=== PATIENT | male | born 1975 | race Caucasian/White ===

== ENCOUNTER 2021-09-24 06:42 | Day surgery (SDC) | payer BC, OTHER ==
[~2021-09-24 06:42] MED LIST: Lactated Ringers 1,000 ML IV SCH; cefOXitin 2 GM in Premix Bag 1 BAG IV ONE
[2021-09-24] MEDS ORDERED: Dexmedetomidine 200 MCG/2 ML SDV ONE (07:13)
[2021-09-24] MEDS ORDERED: Water For Injection, Sterile 20 ML ONE (07:13)
[2021-09-24] MEDS ORDERED: Propofol 200 MG/20 ML SDV ONE (07:13)
[2021-09-24] MEDS ORDERED: Metoclopramide 10 MG/2 ML SDV IVPUSH PRN (07:14)
[2021-09-24] MEDS ORDERED: fentaNYL 100 MCG/2 ML SDV IVPUSH PRN (07:14)
[2021-09-24] MEDS ORDERED: Ondansetron 4 MG/2 ML SDV IVPUSH PRN (07:14)
[2021-09-24] MEDS ORDERED: HYDROmorphone 1 MG/ML Syringe IVPUSH PRN (07:14)
[2021-09-24] MEDS ORDERED: Morphine 2 MG/ML SYRINGE IVPUSH PRN (07:14)
[2021-09-24] MEDS ORDERED: Albuterol 0.083% 2.5 MG/3 ML Neb Soln NEB PRN (07:14)
[2021-09-24] MEDS ORDERED: Naloxone 0.4 MG/ML SDV IVPUSH PRN (07:14)
--- NOTE | 2021-09-24 07:14 | PCM.PREANE ---
Preanesthetic Assessment - Anesthesia/Transfusion/Family Hx Anesthesia History: No Prior Anesthesia Transfusion History: No Prior Transfusion(s) - Review of Systems General: No Symptoms Pulmonary: No Symptoms Cardiovascular: No Symptoms Gastrointestinal: No Symptoms Neurological: No Symptoms Other: Reports: None - Physical Assessment NPO Status Date: 09/24/21 NPO Status Time: 00:00 Vital Signs: Last Vital Signs Temp 97.5 F 09/24/21 06:48 Pulse 76 09/24/21 06:48 Resp 16 09/24/21 06:48 BP 137/77 09/24/21 06:48 Pulse Ox 97 09/24/21 06:48 Height: 5 ft 8 in Weight: 175 lb ASA Class: 2 Mental Status: Alert & Oriented x3 Airway Class: Mallampati = 2 Dentition: Reports: Dentures Thyro-Mental Finger Breadths: 3 Mouth Opening Finger Breadths: 3 ROM/Head Extension: Full Lungs: Clear to Auscultation, Normal Respiratory Effort Cardiovascular: Regular Rate, Regular Rhythm - Allergies Allergies/Adverse Reactions: Allergies Allergy/AdvReac Type Severity Reaction Status Date / Time latex Allergy Rash Verified 09/18/21 10:09 - Acknowledgements Anesthesia Type Planned: General Anesthesia Pt an Appropriate Candidate for the Planned Anesthesia: Yes Alternatives and Risks of Anesthesia Discussed w Pt/Guardian: Yes Pt/Guardian Understands and Agrees with Anesthesia Plan: Yes PreAnesthesia Questionnaire - Past Health History Medical/Surgical History: Denies Medical/Surgical History HEENT History: Reports: Other (See Below) Other HEENT History: wears glasses, top and bottom dentures Cardiovascular History: Reports: None Respiratory History: Reports: None Gastrointestinal History: Reports: None Genitourinary History: Reports: None Musculoskeletal History: Reports: None Neurological History: Reports: None Psychiatric History: Reports: None Endocrine/Metabolic History: Reports: Other (See Below) Other Endocrine/Metabolic History: prediabetic Hematologic History: Reports: None Immunologic History: Reports: None Oncologic (Cancer) History: Reports: None Dermatologic History: Reports: None - Past Surgical History Head Surgeries/Procedures: Reports: None HEENT Surgical History: Reports: None Cardiovascular Surgical History: Reports: None Respiratory Surgical History: Reports: None GI Surgical History: Reports: None Male Surgical History: Reports: None Endocrine Surgical History: Reports: None Neurological Surgical History: Reports: None Musculoskeletal Surgical History: Reports: None Oncologic Surgical History: Reports: None Dermatological Surgical History: Reports: None - SUBSTANCE USE Tobacco Use Status *Q: Former Tobacco User Tobacco Use Within Last Twelve Months: No - HOME MEDS Home Medications: Home Meds . [No Known Home Meds] 09/18/21 [History] - CURRENT (IN HOUSE) MEDS Current Meds: Current Medications Lactated Ringer's (Ringers, Lactated) 1,000 mls @ 125 mls/hr IV ASDIRECTED [facility] Last Admin: 09/24/21 07:12 Dose: 125 mls/hr Documented by: Discontinued Medications Cefoxitin Sodium 2 gm/ Premix 50 mls @ 100 mls/hr IV ONETIME ONE Stop: 09/24/21 05:29
[2021-09-24] MEDS ORDERED: Midazolam 1 MG/ML 2 ML SDV ONE (07:21)
[2021-09-24] MEDS ORDERED: Lidocaine 1% with EPINEPHrine 1:100,000 20 ML MDV ONE (07:23)
[2021-09-24] MEDS ORDERED: cefOXitin 1 GM Vial ONE (07:41)
[2021-09-24] MEDS ORDERED: Dexamethasone 4 MG/ML 5 ML MDV ONE (07:52)
[2021-09-24] MEDS ORDERED: Ketorolac 30 MG/ML SDV ONE (07:52)
[2021-09-24] MEDS ORDERED: Ondansetron 4 MG/2 ML SDV ONE (07:52)
--- NOTE | 2021-09-24 08:10 | PCM.OPNOTE ---
- General Post-Op/Procedure Note Date of Surgery/Procedure: 09/24/21 Operative Procedure(s): chest wall mass excisional bx Findings: 4X 2 mass with generous markgin of 0.5 cm; [id number] Pre Op Diagnosis: chest wall mass Post-Op Diagnosis: Same Anesthesia Technique: General LMA Primary Surgeon: Denilson Woodruff Pathology: sent Complications: None Condition: Good
--- NOTE | 2021-09-24 08:14 | PCM48HPAN ---
Post Anesthesia Note - EVALUATION WITHIN 48HRS OF ANESTHETIC Vital Signs in Normal Range: Yes Patient Participated in Evaluation: Yes Respiratory Function Stable: Yes Airway Patent: Yes Cardiovascular Function Stable: Yes Hydration Status Stable: Yes Pain Control Satisfactory: Yes Nausea and Vomiting Control Satisfactory: Yes Mental Status Recovered: Yes Vital Signs: Last Vital Signs Temp 97.5 F 09/24/21 06:48 Pulse 76 09/24/21 06:48 Resp 16 09/24/21 06:48 BP 137/77 09/24/21 06:48 Pulse Ox 97 09/24/21 06:48
--- NOTE | 2021-09-24 08:14 | PCM.POSTAN ---
POST ANESTHESIA ASSESSMENT - MENTAL STATUS Mental Status: Alert, Oriented - VITAL SIGNS Vital Signs: Last Vital Signs Temp 97.5 F 09/24/21 06:48 Pulse 76 09/24/21 06:48 Resp 16 09/24/21 06:48 BP 137/77 09/24/21 06:48 Pulse Ox 97 09/24/21 06:48 - RESPIRATORY Respiratory Status: Respiratory Rate WNL, Airway Patent, O2 Saturation Stable - CARDIOVASCULAR CV Status: Pulse Rate WNL, Blood Pressure Stable - GASTROINTESTINAL GI Status: No Symptoms - POST OP HYDRATION Hydration Status: Adequate & Stable
--- NOTE | 2021-09-24 13:53 | OR ---
SURGEON: Denilson Woodruff MD DATE OF PROCEDURE: 09/24/2021 PREOPERATIVE DIAGNOSIS: Chest wall mass. POSTOPERATIVE DIAGNOSIS: Chest wall mass. PROCEDURE PERFORMED: Excisional biopsy. COMPLICATION: None. FINDING: Warts are little bit towards the posterior aspect of the right mid axillary line and measured about 4 x 2 cm, well encapsulated. DESCRIPTION OF PROCEDURE: The patient was taken to the operating room and placed in a supine position. Upon induction of general endotracheal anesthesia, the patient was repositioned into a left decub position, left side down and right side up. The mass area was already marked, and the patient was then prepped and draped in sterile fashion. Local anesthetic was given, and followed with using a 15 blade, a vertical incision was made. The mass was palpable around the right scapula angle on the posterior axillary line and the whole mass was well encapsulated about 4 x 2 cm and just popped out and followed with irrigation. Hemostasis achieved by using electrocautery. Wound was then closed with 2-0 Ethilon simple interrupted followed with appropriate dressing. The patient was taken to the recovery room in hemodynamically stable condition. The patient tolerated the procedure well. There were no intraoperative complications. Dr. Woodruff was present through the whole procedure. Prior to closing, instrument count and sponge count were correct. ROSAS / CHARITY /[id number]
== END 2021-09-24 09:05 | disposition home or self-care (01) ==
LOC: MW.SDS 06:42
PROVIDERS: ATTEND Surgery
DX: D17.1 Benign lipomatous neoplasm of skin and subcutaneous tissue of trunk (principal); Z91.040 Latex allergy status; Z87.891 Personal history of nicotine dependence; Z79.899 Other long term (current) drug therapy
CPT/HCPCS: 21552; J0690; J0694; J1100; J1885; J2250; J2405; J2704; J7120; 00400

== ENCOUNTER 2024-07-13 23:22 | Emergency (ER) | payer BC ==
[2024-07-14 00:22] LABS: BASOPHILS ABSOLUTE AUTO 0.09 K/uL (0.00-0.20); BASOPHILS PERCENT AUTO 1.3 % (0.0-1.0); EOSINOPHILS PERCENT AUTO 2.9 % (0.0-6.0); HEMOGLOBIN 13.5 g/dL (14.0-18.0); IMMATURE GRAN ABSOLUTE AUTO 0.02 K/uL (0.00-0.05); IMMATURE GRAN PERCENT AUTO 0.3 % (0.0-0.4); LYMPHOCYTES ABSOLUTE AUTO 3.03 K/uL (1.00-4.80); LYMPHOCYTES PERCENT AUTO 44.7 % (24.0-44.0); MEAN CORPUSCULAR HEMOGLOBIN 30.4 pg (28.0-32.0); MEAN CORPUSCULAR HGB CONC 33.8 g/dL (32.0-36.0); MEAN CORPUSCULAR VOLUME 90.1 fL (83.0-99.0); MEAN PLATELET VOLUME 10.1 fL (9.4-12.4); MONOCYTES ABSOLUTE AUTO 0.76 K/uL (0.00-0.80); MONOCYTES PERCENT AUTO 11.2 % (0.0-8.0); NEUTROPHILS ABSOLUTE AUTO 2.68 K/uL (1.80-7.70); NEUTROPHILS PERCENT AUTO 39.6 % (41.0-71.0); PLATELET COUNT,PLT 321 K/uL (150-400); RED BLOOD CELL COUNT 4.44 M/uL (4.52-5.90); WHITE BLOOD CELL COUNT,WBC 6.78 K/uL (3.9-11.3)
[2024-07-14 00:40] LABS: A/G RATIO 0.9 (0.9-1.6); ALBUMIN 3.4 g/dL (3.4-5.0); BILIRUBIN TOTAL 0.3 mg/dL (0.2-1.0); CALCIUM 9.2 mg/dL (8.5-10.1); CARBON DIOXIDE,CO2 31.5 mmol/L (21.0-32.0); EST CRCL DRUG DOSING (CG) 85.5 mL/min; POTASSIUM,K 3.9 mmol/L (3.5-5.1); PROTEIN TOTAL,TP 7.4 g/dL (6.4-8.2)
[2024-07-14] MEDS: Doxycycline 100 MG Cap PO ONE (01:45)
== END 2024-07-14 01:50 | disposition home or self-care (01) ==
LOC: MW.ED 23:22
DX: R04.2 Hemoptysis (principal); J44.9 Chronic obstructive pulmonary disease, unspecified; Z75.8 Other problems related to medical facilities and other health care; Z91.040 Latex allergy status
CPT/HCPCS: 36415; 71045; 80053; 85025; 85379; 99283; A9270; 99282